=== PATIENT | male | born 1945 | race Caucasian/White ===

== ENCOUNTER 2016-09-21 02:38 | Inpatient (IN) | payer BC ==
[2016-09-21] VITALS (7 sets, daily range): BP systolic 87–124; BP diastolic 29–70; PULSE 92–112; TEMP 98.2–99.7
[~2016-09-21] VITALS: Ht 177.8 cm; Wt 97.5 kg
[~2016-09-21 02:38] MED LIST: 00186-0370-20 IH; DOXYCYCLINE 10100 MG PO; NO HOME MEDICATIONS; PREDNISONE20 MG PO; PRINZIDE 12.5 M1 TA1 PO; PRINZIDE 12.5 M1 TAB PO; PROAIR HFA0.09 MG/AC IH; RT ADVAIR 228 DISKUS IH; RT ALBUTER2.5 MG/0.5 IH; THEO-DUR 3300 MG/TAB PO; ZESTRIL 5MG5 MG PO
[2016-09-21 04:28] LABS: BASO # 0.1 (0.0-0.2); BASO % 0.4 % (0.0-2.0); EOS % 0.2 % (0-4.0); GRAN # 14.2 (1.4-6.5); GRAN % 88.4 % (42.2-75.2); HEMATOCRIT 44.1 % (42.0-52.0); HEMOGLOBIN 14.6 g/dl (13.5-18.0); LYMPH # 0.8 (1.2-3.4); LYMPH % 4.7 % (20.0-51.0); MEAN CELL VOLUME 84 fl (80.0-100.0); MEAN CORPUSCULAR HEMOGLOBIN 28 pg (27.0-31.0); MEAN CORPUSCULAR HGB CONC 33 g/dl (33.0-37.0); MEAN PLATELET VOLUME 10.8 fl (7.4-10.4); MONO # 0.9 (0.1-0.6); MONO % 5.6 % (1.7-9.3); PLATELET COUNT 167 K/mm3 (130-400); RED BLOOD COUNT 5.27 M/mm3 (4.20-5.60); REDCELL DISTRIBUTION WIDTH-CV 14.6 % (11.5-14.5); WHITE BLOOD COUNT 16.1 K/mm3 (4.8-10.8)
[2016-09-21 04:41] LABS: ALANINE AMINOTRANSFERASE 26 U/L (21-72); ALBUMIN 4.2 gm/dL (3.5-5.0); ALKALINE PHOSPHATASE 56 U/L (50-136); ANION GAP 14 mmol/L (7-16); BILIRUBIN,TOTAL 0.7 mg/dL (0.0-1.0); BLOOD UREA NITROGEN 29 mg/dL (9-20); C-REACTIVE PROTEIN 2.2 mg/dL (0.0-0.9); CALCIUM 9.2 mg/dL (8.4-10.2); CARBON DIOXIDE 26 mmol/L (22-30); CHLORIDE 97 mmol/L (98-107); GLUCOSE 114 mg/dL (74-106); POTASSIUM 4.4 mmol/L (3.4-5.0); SODIUM 137 mmol/L (137-145); TOTAL PROTEIN 7.5 gm/dL (6.4-8.2)
[2016-09-21 04:50] LABS: TROPONIN-I 0.027 ng/mL (0.000-0.034)
[2016-09-21 05:28] LABS: THEOPHYLLINE < 1.0 ug/mL (10.0-20.0)
[2016-09-21 05:39] LABS: PH 5 (5-8); SQUAMOUS EPITHELIAL None Seen /hpf; URINE APPEARANCE Clear; URINE BACTERIA None Seen /hpf; URINE BILIRUBIN Negative (NEGATIVE); URINE BLOOD Negative (NEGATIVE); URINE COLOR Yellow; URINE GLUCOSE Negative (NEGATIVE); URINE KETONE Negative (NEGATIVE); URINE RBC None Seen /hpf; URINE UROBILINOGEN Negative (NEGATIVE); URINE WBC 0-2 /hpf
[2016-09-21] MEDS ORDERED: VIAGRA100 M1 PO (07:59)
[2016-09-22 04:07] VITALS: BP 102/54; PULSE 107; TEMP 97.6
[2016-09-22 07:34] VITALS: BP 129/63; PULSE 109; TEMP 99
[2016-09-22 08:25] LABS: MEAN CELL VOLUME 85 fl (80.0-100.0); MEAN CORPUSCULAR HGB CONC 32 g/dl (33.0-37.0); MEAN PLATELET VOLUME 10.7 fl (7.4-10.4); PLATELET COUNT 133 K/mm3 (130-400); RED BLOOD COUNT 4.22 M/mm3 (4.20-5.60); REDCELL DISTRIBUTION WIDTH-CV 15.2 % (11.5-14.5); WHITE BLOOD COUNT 16.1 K/mm3 (4.8-10.8)
[2016-09-22 08:26] LABS: ADD PATHOLOGY DIFF REVIEW NO; HEMATOCRIT 35.9 % (42.0-52.0); HEMOGLOBIN 11.6 g/dl (13.5-18.0); MEAN CORPUSCULAR HEMOGLOBIN 27 pg (27.0-31.0)
[2016-09-22 08:35] LABS: CALCIUM 7.8 mg/dL (8.4-10.2); CREATININE, serum 1.29 mg/dL (0.66-1.25)
[2016-09-22 08:50] LABS: BAND 40 % (0-10); NEUTROPHILS 56 % (42.0-75.2); TOTAL CELLS COUNTED 100
[2016-09-22 08:51] LABS: ANISOCYTOSIS 1+; PLATELET ESTIMATE NORMAL (NORMAL)
[2016-09-22 12:15] VITALS: BP 99/50; PULSE 99; TEMP 98.7
[2016-09-22 15:52] VITALS: BP 111/52; PULSE 108; TEMP 98.9
[2016-09-22 19:38] VITALS: BP 94/57; PULSE 105; TEMP 98.3
[2016-09-22 23:26] VITALS: BP 135/58; PULSE 109; TEMP 97.4
[2016-09-23 03:11] VITALS: BP 139/57; BP 139/69; PULSE 106; PULSE 92; TEMP 98.9
[2016-09-23 08:32] VITALS: BP 101/48; PULSE 102; TEMP 97.8
[2016-09-23 11:37] VITALS: BP 121/61; PULSE 108; TEMP 98.1
[2016-09-23 15:52] VITALS: BP 138/67; PULSE 107; TEMP 99.6
[2016-09-23 16:21] LABS: HEMATOCRIT 34.1 % (42.0-52.0); HEMOGLOBIN 11.1 g/dl (13.5-18.0); MEAN CELL VOLUME 86 fl (80.0-100.0); MEAN CORPUSCULAR HEMOGLOBIN 28 pg (27.0-31.0); MEAN CORPUSCULAR HGB CONC 33 g/dl (33.0-37.0); PLATELET COUNT 149 K/mm3 (130-400); RED BLOOD COUNT 3.99 M/mm3 (4.20-5.60); REDCELL DISTRIBUTION WIDTH-CV 15.2 % (11.5-14.5); WHITE BLOOD COUNT 13.4 K/mm3 (4.8-10.8)
[2016-09-23 19:34] VITALS: BP 127/69; PULSE 108; TEMP 98.7
[2016-09-24 00:10] VITALS: BP 143/75; PULSE 102; TEMP 98.9
[2016-09-24 03:59] VITALS: BP 130/83; PULSE 85; TEMP 98.9
[2016-09-24 07:30] VITALS: BP 145/75; PULSE 106; TEMP 98.3
[2016-09-24 07:34] LABS: MEAN CELL VOLUME 85 fl (80.0-100.0); MEAN CORPUSCULAR HGB CONC 32 g/dl (33.0-37.0); MEAN PLATELET VOLUME 11.1 fl (7.4-10.4); PLATELET COUNT 193 K/mm3 (130-400); RED BLOOD COUNT 4.14 M/mm3 (4.20-5.60); REDCELL DISTRIBUTION WIDTH-CV 15.2 % (11.5-14.5); WHITE BLOOD COUNT 12.3 K/mm3 (4.8-10.8)
[2016-09-24 07:50] LABS: CALCIUM 8.5 mg/dL (8.4-10.2); CREATININE, serum 1.06 mg/dL (0.66-1.25); POTASSIUM 3.9 mmol/L (3.4-5.0)
[2016-09-24 08:14] LABS: HEMATOCRIT 35.1 % (42.0-52.0); HEMOGLOBIN 11.3 g/dl (13.5-18.0); MEAN CORPUSCULAR HEMOGLOBIN 27 pg (27.0-31.0)
[2016-09-24 11:38] VITALS: BP 145/77; PULSE 104; TEMP 98.6
[2016-09-24 15:41] VITALS: BP 149/87; PULSE 100; TEMP 98.4
[2016-09-24 19:39] VITALS: BP 145/66; PULSE 98; TEMP 99
[2016-09-25 04:04] VITALS: BP 151/75; PULSE 87; TEMP 98.4
[2016-09-25 07:39] VITALS: BP 140/66; PULSE 90; TEMP 98.1
[2016-09-25 11:13] VITALS: BP 139/72; PULSE 95; TEMP 98.5
[2016-09-25 15:12] VITALS: BP 133/69; PULSE 109; TEMP 98.1
[2016-09-25] MEDS ORDERED: OMNICEF 300MG300 MG PO (15:57)
== END 2016-09-25 18:13 | disposition home or self-care (01) | DRG 195 ==
LOC: COL.ER 02:38 → MEDICAL 05:51
PROVIDERS: Emergency Medicine; Internal Medicine Cardiovascular Disease
DX: J18.9 Pneumonia, unspecified organism (principal); J44.9 Chronic obstructive pulmonary disease, unspecified; E78.5 Hyperlipidemia, unspecified; I71.4 Abdominal aortic aneurysm, without rupture; I10 Essential (primary) hypertension; Z87.891 Personal history of nicotine dependence
CPT/HCPCS: 99223-AI; 99233-AI; 99239; A9284; J0456; J0696; J1170; J1644; J2405; J7030; J7050; Q9967

== ENCOUNTER → 2017-02-14 | Outpatient (CLI) | payer BC ==
[~2017-02-14] MED LIST changes: +OMNICEF 300MG300 MG PO; +VIAGRA100 M1 PO
== END ==
LOC: COL.RAD 10:24
DX: I71.4 Abdominal aortic aneurysm, without rupture (principal)
CPT/HCPCS: Q9967

== ENCOUNTER → 2018-02-26 | Outpatient (CLI) | payer BC | LOC: COL.RAD 07:57 | DX: I71.4 Abdominal aortic aneurysm, without rupture (principal); I77.1 Stricture of artery | CPT/HCPCS: Q9967 ==